=== PATIENT | male | born 1950 | race Caucasian/White ===

== ENCOUNTER 2017-01-09 06:12 | Emergency (ER) | payer MEDICARE ==
[~2017-01-09] VITALS: Ht 170.2 cm; Wt 89.5 kg
[2017-01-09] MEDS ORDERED: ONDANSETRON 2MG/ML, 2ML IVPush ONE (07:00)
[2017-01-09] MEDS ORDERED: MORPHINE SULFATE 4 MG/ML, 1ML IVPush PRN (07:00)
[2017-01-09] MEDS ORDERED: SODIUM CHLORIDE 0.9% 1,000ML IVBOLUS ONE (07:00)
[2017-01-09] MEDS ORDERED: SODIUM CHLORIDE FLUSH 10ML SYR IVF ONE (07:00)
[2017-01-09] MEDS ORDERED: MORPHINE SULFATE 4 MG/ML, 1ML ONE ×2 (07:10→10:06)
[2017-01-09] MEDS ORDERED: ONDANSETRON 2MG/ML, 2ML ONE (07:11)
[2017-01-09 07:17] LABS: HEMOGLOBIN 14.5 g/dL (13.7-18.0); WHITE BLOOD COUNT 8.5 x10^3/uL (3.4-10)
[2017-01-09 07:29] LABS: ASPARTATE AMINO TRANSFERASE 22 U/L (15-37); BLOOD UREA NITROGEN 17 mg/dL (7-18)
[2017-01-09] MEDS ORDERED: UBID100C41 PO (07:30)
[2017-01-09] MEDS ORDERED: TAMS-11 PO (07:30)
[2017-01-09] MEDS ORDERED: GLUC500T11 PO (07:30)
[2017-01-09] MEDS ORDERED: CARB1TAB22 PO (07:30)
[2017-01-09] MEDS ORDERED: HYAL1CAP PO (07:30)
[2017-01-09] MEDS ORDERED: ATOR20TA PO (07:30)
[2017-01-09] MEDS ORDERED: DUTA0.5C PO (07:30)
[2017-01-09 10:29] VITALS: BP 129/80
== END 2017-01-09 10:34 | disposition home or self-care (01) ==
LOC: ED 08:03
DX: R10.11 Right upper quadrant pain (principal); R10.13 Epigastric pain; Z88.6 Allergy status to analgesic agent; Z88.8 Allergy status to other drugs, medicaments and biological substances
CPT/HCPCS: 36415; 74176; 76700; 80053; 81003; 83690; 85025; 85610; 85730; 93005; 96361; 96374; 96375; 99285; J2405; J7030